=== PATIENT | female | born 1940 | race Caucasian/White ===

== ENCOUNTER 2017-08-31 22:52 | Emergency (ER) | payer OTHER ==
[~2017-08-31] VITALS: Ht 154.9 cm; Wt 68.0 kg
[~2017-08-31 22:52] MED LIST: ASA81 MG; CIPRO500 MG PO; CLARITIN-D 121 EACH PO; COZAAR25 MG PO; DICLOFENAC SODI50 MG PO; FLAGYL500MG PO; FLEXERIL10 MG PO; GLUCOPHAGE XR500 MG; KETO10TA2 PO; LIPOFLAVONOID C1 TAB; PROTONIX40 MG PO; SIMVASTATIN20 MG; SYNTHROID50 MCG
[2017-09-01] MEDS ORDERED: VOLTAREN-XR100 MG PO (01:02)
== END 2017-09-01 01:21 | disposition home or self-care (01) ==
LOC: ER 22:52
DX: M25.562 Pain in left knee (principal); M25.561 Pain in right knee

== ENCOUNTER 2017-09-12 08:27 | Emergency (ER) | payer OTHER ==
[~2017-09-12] VITALS: Ht 154.9 cm; Wt 59.0 kg
[~2017-09-12 08:27] MED LIST changes: +VOLTAREN-XR100 MG PO
[2017-09-12] MEDS ORDERED: DICLOFENAC POTA50 MG PO (10:18)
[2017-09-12] MEDS ORDERED: TRAMADOL HCL50 MG PO (10:18)
== END 2017-09-12 10:32 | disposition home or self-care (01) ==
LOC: ER 08:27
DX: G89.29 Other chronic pain (principal); M25.562 Pain in left knee; M25.561 Pain in right knee

== ENCOUNTER → 2017-09-28 07:21 | Outpatient (CLI) | payer OTHER ==
[~2017-09-28 07:21] MED LIST changes: +DICLOFENAC POTA50 MG PO; +TRAMADOL HCL50 MG PO
== END | disposition home or self-care (01) ==
LOC: LAB 07:21
DX: D68.8 Other specified coagulation defects (principal); I10 Essential (primary) hypertension; Z01.818 Encounter for other preprocedural examination

== ENCOUNTER 2017-10-08 05:00 | Day surgery (SDC) | payer OTHER ==
[~2017-10-08 05:00] MED LIST changes: +ATORVASTATIN CA20 MG PO
[2017-10-08] MEDS ORDERED: DUI500 PO (10:42)
[2017-10-08] MEDS ORDERED: TRAM1TAB98 PO (10:42)
== END 2017-10-08 14:40 | disposition home or self-care (01) ==
LOC: CIR.AMB 05:00 → EDSTATUS 09:15 → SURG 09:15 → CIR.AMB 09:15
DX: M23.322 Other meniscus derangements, posterior horn of medial meniscus, left knee (principal); M23.342 Other meniscus derangements, anterior horn of lateral meniscus, left knee; M65.862 Other synovitis and tenosynovitis, left lower leg; M17.12 Unilateral primary osteoarthritis, left knee

== ENCOUNTER 2017-11-10 08:42 | Emergency (ER) | payer OTHER ==
[~2017-11-10] VITALS: Ht 154.9 cm; Wt 59.0 kg
[~2017-11-10 08:42] MED LIST changes: +DUI500 PO; +TRAM1TAB98 PO; +ZANTAC300 MG PO; +ZOFRAN ODT4 MG PO
== END 2017-11-10 13:13 | disposition home or self-care (01) ==
LOC: ER 08:42
DX: R51 Headache (principal)

== ENCOUNTER 2018-02-06 05:04 | Emergency (ER) | payer OTHER ==
[~2018-02-06] VITALS: Ht 154.9 cm; Wt 54.9 kg
[2018-02-06] MEDS ORDERED: MONISTAT 3 COM1 EACH VAG (07:23)
== END 2018-02-06 07:32 ==
LOC: ER 05:04
DX: N76.0 Acute vaginitis (principal)

== ENCOUNTER 2018-05-20 13:18 | Emergency (ER) | payer OTHER ==
[~2018-05-20] VITALS: Ht 152.4 cm; Wt 56.7 kg
[~2018-05-20 13:18] MED LIST changes: +MONISTAT 3 COM1 EACH VAG
== END 2018-05-20 14:38 | disposition home or self-care (01) ==
LOC: ER 13:18
DX: M94.0 Chondrocostal junction syndrome [Tietze] (principal)

== ENCOUNTER → 2018-07-08 | Emergency (ER) | payer OTHER ==
[~2018-07-08] VITALS: Ht 154.9 cm; Wt 56.7 kg
== END | disposition home or self-care (01) ==
LOC: ER 12:02
DX: R10.2 Pelvic and perineal pain (principal); R30.0 Dysuria

== ENCOUNTER 2018-07-26 16:19 | Emergency (ER) | payer OTHER ==
[~2018-07-26] VITALS: Ht 154.9 cm; Wt 56.7 kg
[2018-07-26] MEDS ORDERED: PLAVIX75 MG (16:31)
[2018-07-26] MEDS ORDERED: RAZADYNE ER16 MG PO (16:32)
== END 2018-07-26 17:05 | disposition home or self-care (01) ==
LOC: ER 16:19
DX: M25.562 Pain in left knee (principal)

== ENCOUNTER 2019-04-20 14:40 | Emergency (ER) | payer OTHER ==
[~2019-04-20] VITALS: Ht 160 cm; Wt 58.5 kg
[~2019-04-20 14:40] MED LIST changes: +PLAVIX75 MG; +RAZADYNE ER16 MG PO
== END 2019-04-20 20:26 | disposition home or self-care (01) ==
LOC: ER 14:40
DX: J15.7 Pneumonia due to Mycoplasma pneumoniae (principal)

== ENCOUNTER 2019-07-12 07:27 | Emergency (ER) | payer OTHER ==
[~2019-07-12] VITALS: Ht 157.5 cm; Wt 56.2 kg
[2019-07-12] MEDS ORDERED: PLAVIX75 MG (07:43)
[2019-07-12] MEDS ORDERED: SYNTHROID75 MCG (07:45)
== END 2019-07-12 09:15 | disposition home or self-care (01) ==
LOC: ER 07:27
DX: R21 Rash and other nonspecific skin eruption (principal); F41.1 Generalized anxiety disorder

== ENCOUNTER 2019-09-10 07:59 | Emergency (ER) | payer OTHER ==
[~2019-09-10] VITALS: Ht 154.9 cm; Wt 54.4 kg
[~2019-09-10 07:59] MED LIST changes: +SYNTHROID75 MCG
[2019-09-10] MEDS ORDERED: ZITHROMAX500 MG PO (14:23)
[2019-09-10] MEDS ORDERED: VISTARIL25 MG PO (14:42)
== END 2019-09-10 14:50 | disposition home or self-care (01) ==
LOC: ER 07:59
DX: R21 Rash and other nonspecific skin eruption (principal); B96.0 Mycoplasma pneumoniae [M. pneumoniae] as the cause of diseases classified elsewhere; Z03.818 Encounter for observation for suspected exposure to other biological agents ruled out

== ENCOUNTER 2020-05-22 06:50 | Emergency (ER) | payer OTHER ==
[~2020-05-22] VITALS: Ht 154.9 cm; Wt 59.0 kg
[~2020-05-22 06:50] MED LIST changes: +VISTARIL25 MG PO; +ZITHROMAX500 MG PO
== END 2020-05-22 11:00 | disposition home or self-care (01) ==
LOC: ER 06:50
DX: L50.8 Other urticaria (principal)

== ENCOUNTER 2020-07-27 09:00 | Inpatient (IN) | payer OTHER ==
[~2020-07-27] VITALS: Ht 170.2 cm; Wt 59.0 kg
[2020-07-27] MEDS ORDERED: SYNTHROID50 MCG PO (11:34)
[2020-07-27] MEDS ORDERED: GALANTAMINE HBR24 MG PO (11:35)
[2020-07-27] MEDS ORDERED: MEMANTINE HCL E28 MG PO (11:36)
[2020-08-02] MEDS ORDERED: OLANZAPINE2.5 MG (07:59)
[2020-08-05] MEDS ORDERED: INTEGRA PLUS C1 EACH PO (08:21)
[2020-08-05] MEDS ORDERED: XARELTO10 MG PO (08:21)
[2020-08-05] MEDS ORDERED: OXYC1TAB9 PO (08:21)
[2020-08-05] MEDS ORDERED: BACTRIM DS TAB1 EACH PO (08:21)
== END 2020-08-05 22:34 | disposition home or self-care (01) | DRG 470 ==
LOC: O/R 08-02 06:08 → SURH 08-02 06:08
PROVIDERS: ADMIT Orthopaedic Surgery Sports Medicine; ATTEND Orthopaedic Surgery Sports Medicine
PROC: 3E0F7SF Introduction of Other Gas into Respiratory Tract, Via Natural or Artificial Opening (ICD-10-PCS; 2020-08-02)
PROC: 0SRD0J9 Replacement of Left Knee Joint with Synthetic Substitute, Cemented, Open Approach (ICD-10-PCS; principal; 2020-08-02 10:45)
DX: M17.12 Unilateral primary osteoarthritis, left knee (principal); D62 Acute posthemorrhagic anemia; I10 Essential (primary) hypertension; Z20.822 Contact with and (suspected) exposure to COVID-19